=== PATIENT | male | born 1945 | race Caucasian/White ===

== ENCOUNTER 2018-06-26 02:39 | Inpatient (IN) | payer MEDICARE ==
[2018-06-26] VITALS (16 sets, daily range): BP systolic 104–147; BP diastolic 62–98
[~2018-06-26] VITALS: Ht 182.9 cm; Wt 115.7 kg
[~2018-06-26 02:39] MED LIST: AMLODIPINE BESY10 MG PO; ASPIR 8181 MG PO; BACTRIM DS TAB1 EACH PO; CARDIZEM CD120 MG PO; CIPRO250 M1 PO; DIOVAN; DIOVAN 80 MG TA80 M1 PO; HYDROCHLOROTHIA25 M1 PO; HYDROCHLOROTHIA25 M2 PO; LEVSIN0.125 MG PO; LOPRESSOR25 PO; NITROGLYCERIN0.4 MG SUBLING; NORVASC5 MG PO; PERCOCET 5-3251 EACH PO; PHENAZOPYRIDIN200 M2 PO; PROTONIX40 M1 PO; SORINE 80 MG TA80 M1 PO; TOPROL XL25 MG; TYLENOL325 MG PO; VALSARTAN-HCTZ1 EAC4 PO; XARELTO10 MG PO; XARELTO20 MG PO
[2018-06-26 03:05] LABS: ABSOLUTE LYMPHOCYTES 1.6 thou/uL (0.8-5.3); ABSOLUTE MONOCYTES 0.8 thou/uL (0.0-1.2); BASOPHILS 0.5 %; EOSINOPHILS 0.5 %; HEMATOCRIT 51.2 % (42.0-52.0); LYMPHOCYTES 18.7 %; MCH 31.9 pg (26.0-34.0); MCHC 33.2 g/dL (28.0-37.0); MCV 96.4 fL (80.0-100.0); MONOCYTES 9.2 %; MPV 9.5 fl. (7.2-11.1); NUCLEATED RBCS 0 /100WBC; PLATELET COUNT* 212 thou/uL (150-400); POLYS 71.1 %; RBC 5.31 mil/uL (4.50-6.00); RDW-CV 13.9 % (10.5-14.5); WBC 8.5 thou/uL (4.0-11.0)
[2018-06-26 03:14] LABS: APTT 24.9 Seconds (25.0-31.3); PROTIME 10.6 Seconds (9.20-11.50)
[2018-06-26 03:30] LABS: ANION GAP 13 mmol/L (7-16); BUN 75 mg/dL (7-18); CALCIUM 9.1 mg/dL (8.5-10.1); CHLORIDE 86 mmol/L (98-107); CO2 26 mmol/L (21-32); CREATININE 2.7 mg/dL (0.6-1.3); POTASSIUM 4.1 mmol/L (3.5-5.1); SODIUM 125 mmol/L (136-145)
[2018-06-26] MEDS ORDERED: SORINE 80 MG TA80 M1 (03:35)
[2018-06-26] MEDS ORDERED: HYDROCHLOROTHIA25 M2 (03:37)
[2018-06-26 03:42] LABS: ALBUMIN 3.8 g/dL (3.4-5.0); ALKALINE PHOSPHATASE 226 U/L (46-116); LIPASE 688 U/L (73-393); NT-PRO BRAIN NAT PEPTIDE 713 pg/mL (<300); SGOT 24 U/L (15-37); SGPT 36 U/L (30-65); TOTAL BILIRUBIN 0.9 mg/dL (<0.1-1.0); TOTAL PROTEIN 7.9 g/dL (6.4-8.2); TROPONIN-I LEVEL <0.06 ng/mL (<0.06)
[2018-06-26 03:51] LABS: GLUCOSE 1012 mg/dL (70-99)
[2018-06-26 04:42] LABS: BE -1.5 mmol/L (-2 to +3); HCO3 23.9 mmol/L (22.0-26.0); PCO2 42.6 mmHg (35.0-45.0); PO2 98.3 mmHg (75.0-100.0); pH 7.366 (7.340-7.450)
[2018-06-26 08:42] LABS: CHOLESTEROL 302 mg/dL (<200); HDL CHOLESTEROL 35 mg/dL (>40); TC:HDL 8.6 Ratio (Not establshd); TRIGLYCERIDE 1151 mg/dL (<150); VLDL 230 mg/dL (<40)
[2018-06-26 08:46] LABS: LDL CHOLESTEROL ND mg/dL (<100); SERUM ASSESSMENT Clear
[2018-06-26 10:35] LABS: ALBUMIN 3.5 g/dL (3.4-5.0); CALCIUM 9.4 mg/dL (8.5-10.1); CREATININE 2.6 mg/dL (0.6-1.3); MAGNESIUM 2.8 mg/dL (1.8-2.4); PHOSPHORUS* 4.4 mg/dL (2.5-4.9); POTASSIUM 3.4 mmol/L (3.5-5.1)
[2018-06-26 12:24] LABS: URINE BILIRUBIN NEGATIVE (Negative); URINE BLOOD 2+ (Negative); URINE CLARITY CLEAR; URINE COLOR YELLOW; URINE GLUCOSE-RANDOM 3+ (Negative); URINE KETONES NEGATIVE (Negative); URINE LEUKOCYTES-REFLEX NEGATIVE (Negative); URINE NITRITE-REFLEX NEGATIVE (Negative); URINE PROTEIN 2+ (Negative); URINE SPECIFIC GRAVITY 1.025 (1.005-1.030); URINE UROBILINOGEN 0.2 E.U./dl (0.2-1.0)
[2018-06-26 12:34] LABS: BACTERIA-REFLEX 1-9 Few /HPF (None Seen); COARSE GRANULAR CASTS 0-3 Few /LPF (None Seen); CRYSTALS None Seen /LPF (None Seen); HYALINE CASTS 0-3 Few /LPF (None Seen); MUCUS 0-3 Light strn/LPF (None Seen); SQUAMOUS 0-3 Few /LPF (0-3); URINE RBC 3-10 Few /HPF (0-2); URINE WBC-REFLEX 0-5 Rare /HPF (0-5)
--- NOTE | 2018-06-26 12:59 | EKG ---
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 : 1945 Requested By: Lisa Johnson Order Number: [id number] MD: Allen Prado Measurements Intervals [place] Rate: 88 P: [place]: QRS: 28 QRSD: 102 T: -63 QT: 344 QTc: 417 Interpretive Statements Atrial fibrillation Ventricular premature complex Abnormal R-wave progression, early transition Nonspecific repol abnormality, diffuse leads Baseline wander in lead(s) V3 Compared to ECG 06/24/2017 22:44:49 Ventricular premature complex(es) now present Electronically Signed On 06-26-2018 12:59:01 CDT by Allen Prado [email or web address] <ELECTRONICALLY SIGNED> By: Allen Prado MD, FACC 06/26/18 1259 4 Allen Prado MD, FACC /EPI
[2018-06-26 14:19] LABS: CALCIUM 8.8 mg/dL (8.5-10.1); CREATININE 2.5 mg/dL (0.6-1.3); POTASSIUM 3.4 mmol/L (3.5-5.1)
[2018-06-26 14:22] LABS: ALBUMIN 3.1 g/dL (3.4-5.0); MAGNESIUM 2.6 mg/dL (1.8-2.4); PHOSPHORUS* 4.4 mg/dL (2.5-4.9)
[2018-06-26 17:12] LABS: CALCIUM 8.7 mg/dL (8.5-10.1); CREATININE 2.5 mg/dL (0.6-1.3); POTASSIUM 3.1 mmol/L (3.5-5.1)
[2018-06-26 17:14] LABS: MAGNESIUM 2.6 mg/dL (1.8-2.4); PHOSPHORUS* 4.3 mg/dL (2.5-4.9)
[2018-06-27] VITALS (8 sets, daily range): BP systolic 100–141; BP diastolic 50–93
[2018-06-27 02:06] LABS: ESTIMATED AVERAGE GLUCOSE > 398 mg/dL (()); GLYCOHEMOGLOBIN (HGB A1C) > 15.5 % (4.8-5.6)
[2018-06-27 05:00] LABS: CALCIUM 8.5 mg/dL (8.5-10.1); CREATININE 2.4 mg/dL (0.6-1.3); MAGNESIUM 2.7 mg/dL (1.8-2.4); POTASSIUM 3.7 mmol/L (3.5-5.1)
--- NOTE | 2018-06-27 13:42 | 2DMMODE ---
[place] [address] 2 D/M-MODE ECHOCARDIOGRAM Name: ARMEN CRUZ Room: [address] IN [facility]#: [id number] Admission: 06/26/18 Attend Phys: Cuca Valentino, Discharge: Date of : 45 Date of Service: 06/27/18 1342 Report #: [id number] THIS REPORT FOR: //name// APPROVED REPORT Study performed: 06/27/2018 10:21:12 EXAM: Comprehensive 2D, Doppler, and color-flow Echocardiogram Patient Location: In-Patient Room #: [facility] Status: routine BSA: 2.36 HR: 79 bpm BP: 117/81 mmHg Rhythm: Atrial Fibrillation Other Information Study Quality: Good Indications Atrial Fibrillation Chest Pain 2D Dimensions IVSd: 15.38 (7-11mm) LVOT Diam: 22.38 (18-24mm) LVDd: 44.56 mm PWd: 10.50 (7-11mm) Ascending Ao: 38.61 (22-36mm) LVDs: 23.17 (25-40mm) Aortic Root: 31.93 mm Volumes Left Atrial Volume (Systole) LA ESV Index: 22.70 mL/m2 Aortic Valve AoV Peak Rene.: 1.93 m/s AO Peak Gr.: 14.85 mmHg LVOT Max P.50 mmHg AO Mean Gr.: 8.62 mmHg LVOT Mean P.94 mmHg LVOT Max V: 1.37 m/s AO V2 VTI: 26.42 cm LVOT Mean V: 0.90 m/s RODRIGUE (VTI): 3.08 cm2 LVOT V1 VTI: 20.71 cm Mitral Valve MV Decel. Time: 238.86 ms MV PHT: 69.27 [place] [address] 2 D/M-MODE ECHOCARDIOGRAM Name: ARMEN CRUZ Room: [address] IN [facility].#: [id number] Admission: 06/26/18 Attend Phys: Cuca Valentino, Discharge: Date of : 45 Date of Service: 06/27/18 1342 Report #: [id number] MVA (PHT): 3.18 cm2 TDI Medial E' Rene.: 0.13 m/s Lateral E' Rene.: 0.11 m/s Pulmonary Valve PV Peak Rene.: 0.93 m/s PV Peak Gr.: 3.48 mmHg Tricuspid Valve RAP Estimate: 5.00 mmHg TR Peak Gr.: 26.52 mmHg RVSP: 31.50 mmHg PA Pressure: 31.50 mmHg Left Ventricle The left ventricle is normal size. There is normal LV segmental wall motion. Left ventricular systolic function is normal. The left ventricular ejection fraction is within the normal range. LVEF is 60-65%. This study is not technically sufficient to allow evaluation of the LV diastolic function due to atrial fibrillation. Right Ventricle The right ventricle is normal size. The right ventricular systolic function is normal. Atria The left atrium size is normal. The right atrium size is normal. Aortic Valve Mild aortic valve sclerosis. No aortic regurgitation is present. There is no aortic valvular stenosis. Mitral Valve Mild mitral annular calcification. There is no mitral valve regurgitation noted. No evidence of mitral valve stenosis. Tricuspid Valve The tricuspid valve is normal in structure. Mild tricuspid regurgitation. Mild pulmonary hypertension. Pulmonic Valve The pulmonary valve is normal in structure. There is no pulmonic valvular regurgitation[place] [address] 2 D/M-MODE ECHOCARDIOGRAM Name: ARMEN CRUZ Room: [address] IN ..#: [id number] Admission: 06/26/18 Attend Phys: Cuca Valentino, Discharge: Date of : 45 Date of Service: 06/27/18 1342 Report #: [id number] The aortic root is normal in size. IVC is normal in size and collapses >50% with inspiration. Pericardium There is no pericardial effusion. <Conclusion> The left ventricle is normal size. Left ventricular systolic function is normal. The left ventricular ejection fraction is within the normal range. LVEF is 60-65%. This study is not technically sufficient to allow evaluation of the LV diastolic function due to atrial fibrillation. The right ventricle is normal size. The left atrium size is normal. Mild aortic valve sclerosis. No aortic regurgitation is present. There is no aortic valvular stenosis. Mild mitral annular calcification. There is no mitral valve regurgitation noted. No evidence of mitral valve stenosis. The tricuspid valve is normal in structure. Mild tricuspid regurgitation. Mild pulmonary hypertension. IVC is normal in size and collapses >50% with inspiration. There is no pericardial effusion. There is normal LV segmental wall motion. <ELECTRONICALLY SIGNED> By: Tristan Steele MD, FACC 06/27/18 134 134 41 Tristan Steele MD, FACC /INF
[2018-06-28] VITALS: BP 125/69
[2018-06-28 04:00] VITALS: BP 141/79
[2018-06-28 05:21] LABS: CALCIUM 8.1 mg/dL (8.5-10.1); CREATININE 2.3 mg/dL (0.6-1.3); MAGNESIUM 2.4 mg/dL (1.8-2.4); POTASSIUM 3.6 mmol/L (3.5-5.1)
[2018-06-28 08:00] VITALS: BP 136/82
[2018-06-28 13:26] VITALS: BP 127/73
[2018-06-28 20:00] VITALS: BP 119/78
[2018-06-29] VITALS: BP 112/76
[2018-06-29 04:00] VITALS: BP 118/65
[2018-06-29 04:57] LABS: HEMATOCRIT 38.1 % (42.0-52.0); HEMOGLOBIN 13.1 gm/dL (14.0-18.0); MCH 32.1 pg (26.0-34.0); MCHC 34.3 g/dL (28.0-37.0); MCV 93.4 fL (80.0-100.0); MPV 9.2 fl. (7.2-11.1); RBC 4.08 mil/uL (4.50-6.00); RDW-CV 13.4 % (10.5-14.5); WBC 7.4 thou/uL (4.0-11.0)
[2018-06-29 06:57] LABS: CALCIUM 8.3 mg/dL (8.5-10.1); CREATININE 2.4 mg/dL (0.6-1.3); MAGNESIUM 2.5 mg/dL (1.8-2.4); POTASSIUM 3.5 mmol/L (3.5-5.1)
[2018-06-29 08:00] VITALS: BP 123/83
[2018-06-29 12:00] VITALS: BP 125/76
[2018-06-29 13:43] VITALS: BP 125/76
[2018-06-29 16:42] VITALS: BP 117/67
--- NOTE | 2018-06-29 17:11 | CARDNUC ---
[place] [address] CARDIAC NUCLEAR IMAGING REPORT Name: ARMEN CRUZ Room: [address] IN [facility]#: [id number] Admission: 06/26/18 Attend Phys: Cuca Valentino, Discharge: Date of : 45 Date of Service: 06/29/18 1711 Report #: [id number] THIS REPORT FOR: //name// APPROVED REPORT Study performed: 06/28/2018 08:17:00 Indication: Atrial Fibrillation, Chest pain Patient Location: In-Patient Room #: 309 Stress Tech: Azra Harris Stress Nurse: Beverly Thurston RN NM Tech:PRASHANTH Cool Ht: 6 ft 0 in Wt: 255 lbs BSA: 2.36 m2 BMI: 34.58 Medical History Medical History: hyperlipidemia, ckd Medications: apixaban, aspirin 81, diltiazem, atorvastatin Allergies: nkda Cardiac Risk Factors: age, hypertension Exercise History: Sedentary Resting Data Rest SPECT myocardial perfusion imaging was performed in supine position 30 minutes following the intravenous injection of 36.6 mCi of Tc-99m Sestamibi. Time of rest injection: 934 Date: 06/29/2018 Time of rest imagin The images were gated to evaluate regional wall motion and calculate left ventricular ejection fraction. Administration Route: IV Pharmacologic Stress Pharmacologic stress test was performed by injecting Regadenoson 0.4 mg IV push over 10-15 seconds immediately followed by the intravenous injection of 39.9 mCi of Tc-99m Sestamibi. Time of stress injection: 15:55 Date: 06/28/2018 Administration Route: IV Administration Site: Right Arm Heart Rate at time of stress injection: 83 bpm. Gated Stress SPECT was performed 40 minutes after stress injection. The images were gated to evaluate regional wall [place] [address] CARDIAC NUCLEAR IMAGING REPORT Name: ARMEN CRUZ Room: [address]#: [id number] Admission: 06/26/18 Attend Phys: Cuca Valentino, Discharge: Date of : 45 Date of Service: 06/29/18 1711 Report #: [id number] left ventricular ejection fraction. Stress Test Details Stress Test: Pharmacologic stress testing performed using 0.4 mg of regadenoson per 5 mL given IV over 10 seconds. Reason for pharmacologic stress test: physical limitation. HR Max Heart Rate (APMHR): 148 bpm Resting HR: 87 bpm Target HR (85% APMHR): 125 bpm Max HR Achieved: 83 bpm % of APMHR: 56 Recovery HR: 88 bpm BP Resting BP: 116/66 mmHg Recovery BP: 111/57 mmHg ECG Resting ECG: Atrial Fibrillation Stress ECG: Atrial Fibrillation ST Change: None Arrhythmia: None Recovery ECG: Atrial Fibrillation Recovery ST Change: None Recovery Arrhythmia: None Clinical Reason for Termination: Completed protocol Exercise duration: 0 min sec Exercise capacity: 1` METs The patient tolerated Lexiscan infusion without significant symptoms. Nurse Comments pt unable to stand or walk without assistance Stress ECG Conclusion The baseline 12-lead EKG shows atrial fibrillation without significant ST segment abnormality. EKGs obtained during and post Lexiscan infusion show atrial fibrillation with no significant ST segment changes when compared baseline. There were no other stress-induced arrhythmias. Study Quality Study: Good Artifact: Mild [place] [address] CARDIAC NUCLEAR IMAGING REPORT Name: ARMEN CRUZ Room: [address] IN [facility]#: [id number] Admission: 06/26/18 Attend Phys: Cuca Valentino, Discharge: Date of : 45 Date of Service: 06/29/18 1711 Report #: [id number] Study Data At rest, the left ventricular ejection fraction was 87%.. Post stress, the left ventricular ejection was 92%.. TID = 1.01. Perfusion There is mild photopenia of the inferior wall on both stress and resting images that appears to diaphragmatic attenuation artifact. No other significant defects identified. Wall Motion Left particular systolic function appears vigorous. Nuclear Conclusion ECG Findings: negative for ischemia Clinical Findings: negative for ischemia Nuclear Findings: negative for ischemia Exercise Capacity: not assessed Left Ventricular Function: vigorous Risk Study: low Myocardial perfusion images show no defect to suggest ischemia or infarct. Left jugular systolic function is vigorous. This is a low risk study. <Conclusion> The baseline 12-lead EKG shows atrial fibrillation without significant ST segment abnormality. EKGs obtained during and post Lexiscan infusion show atrial fibrillation with no significant ST segment changes when compared baseline. There were no other stress-induced arrhythmias. <ELECTRONICALLY SIGNED> By: Allen Prado MD, FACC 06/29/181710 10 10 Allen Prado MD, FACC /INF
[2018-06-30] VITALS (7 sets, daily range): BP systolic 121–164; BP diastolic 69–82
[2018-06-30 04:37] LABS: HEMATOCRIT 38.1 % (42.0-52.0); HEMOGLOBIN 12.9 gm/dL (14.0-18.0); MCH 31.6 pg (26.0-34.0); MCHC 33.8 g/dL (28.0-37.0); MCV 93.5 fL (80.0-100.0); RBC 4.07 mil/uL (4.50-6.00); RDW-CV 13.3 % (10.5-14.5); WBC 6.8 thou/uL (4.0-11.0)
[2018-06-30 04:47] LABS: ALBUMIN 2.7 g/dL (3.4-5.0); CALCIUM 8.2 mg/dL (8.5-10.1); CREATININE 2.1 mg/dL (0.6-1.3); MAGNESIUM 2.5 mg/dL (1.8-2.4); POTASSIUM 3.7 mmol/L (3.5-5.1); TOTAL BILIRUBIN 0.4 mg/dL (<0.1-1.0); TOTAL PROTEIN 5.6 g/dL (6.4-8.2)
[2018-07-01 03:53] VITALS: BP 158/91
[2018-07-01 04:19] LABS: HEMATOCRIT 40.6 % (42.0-52.0); HEMOGLOBIN 13.8 gm/dL (14.0-18.0); MCH 31.7 pg (26.0-34.0); MCV 93.2 fL (80.0-100.0); RBC 4.36 mil/uL (4.50-6.00); RDW-CV 13.4 % (10.5-14.5); WBC 6.1 thou/uL (4.0-11.0)
[2018-07-01 04:52] LABS: ALBUMIN 2.8 g/dL (3.4-5.0); CALCIUM 8.6 mg/dL (8.5-10.1); MAGNESIUM 2.4 mg/dL (1.8-2.4); POTASSIUM 3.1 mmol/L (3.5-5.1); TOTAL BILIRUBIN 0.5 mg/dL (<0.1-1.0); TOTAL PROTEIN 6.8 g/dL (6.4-8.2)
--- NOTE | 2018-07-01 08:35 | CON ---
[address] [address] CONSULTATION Name: ARMEN CRUZ Room: [address] IN M.R.#: [id number] Admission: 06/26/18 Attend Phys: Cuca Valentino MD Discharge: Date of : 45 Report #: [id number] THIS REPORT FOR: //name// CC: Brandt Valentino DATE OF SERVICE: 06/26/2018 NEPHROLOGY CONSULTATION CONSULTING PHYSICIAN: Dr. Valentino. REASON FOR NEPHROLOGY CONSULTATION: Acute kidney injury on chronic kidney disease, stage 3. CHIEF COMPLAINT: Weakness. HISTORY OF PRESENT ILLNESS: This is a 72-year-old male, with past medical history of obesity, atrial fibrillation, hypertension, chronic kidney disease stage 3 with baseline creatinine of 1.9-1.2, came in because he was feeling extremely weak and was having polydipsia and polyuria. He does not have any history of diabetes in the past. He was found to have a blood glucose of more than 1000 in the Emergency Room and was started on treatment for hyperglycemic hyperosmolar state. He is currently on insulin drip, getting IV fluids. His initial creatinine was 2.7 when he came in. His creatinine when he followed up with us in the office in 2015 was 1.9-2, and he has not followed up with us since then. He has no history of any kidney stones. He does take hydrochlorothiazide. He is not taking any SONYA inhibitor or ARB or any NSAIDs. Denies any problems urinating. It looks like he has been nonoliguric since he has been here. Currently, he is on a facemask, completely cooperative feeling better from when he came in. The blood glucose is slowly coming down. ALLERGIES: No known drug allergies. REVIEW OF SYSTEMS: This is as mentioned in history of present illness, otherwise negative. PAST MEDICAL AND SURGICAL HISTORY: Includes hypertension. He does have history of chronic kidney disease, stage 3 with baseline creatinine of 1.9-2, which is likely because of hypertensive nephropathy, history of hyperlipidemia, double hernia repair, bilateral knee repair, atrial fibrillation with RVR. Cardioversion was done, back to normal sinus rhythm, bladder cancer, GERD, obesity. HOME MEDICATIONS: Which include sotalol, hydrochlorothiazide 25 mg once a day, aspirin, nitroglycerin, pantoprazole, diltiazem [place] [address] CONSULTATION Name: ARMEN CRUZ Room: [address]#: [id number] Admission: 06/26/18 Attend Phys: Cuca Valentino MD Discharge: Date of : 45 Report #: [id number] FAMILY HISTORY: No history of kidney disease in the family. SOCIAL HISTORY: He monthly drinks a beer and does not smoke currently, does not use any recreational drugs. Lives at home. PHYSICAL EXAMINATION: VITAL SIGNS: Blood pressure is 138/88 and pulse ox is 98% on 2 liters oxygen through facemask, respiratory rate 17, pulse rate is 78, temperature is 36.9. GENERAL: He is awake and alert and oriented x 3. HEAD, EYES, EARS, NOSE AND THROAT: Mucous membranes are dry. NECK: There is no JVD. LUNGS: Clear to auscultation bilaterally. No crackles or wheezing. CARDIOVASCULAR: S1, S2 normal. No murmurs or rubs. ABDOMEN: Soft, obese, nondistended, nontender. Bowel sounds are present. EXTREMITIES: There is no lower extremity edema, symmetrical looking. NEUROLOGICAL FUNCTION: Gross neurological function is intact. PSYCHIATRIC: Mood and affect seem to be normal. LABORATORY DATA: Hemoglobin 17.2, WBC is 8.5, platelet count is 212. Sodium was 125, but at that time, her blood glucose was 1000, potassium is 4.1, CO2 is 26 and creatinine of 2.7 and other labs were reviewed. IMAGING: Head CT and chest x-ray were reviewed. ASSESSMENT: 1. Acute kidney injury on chronic kidney disease, stage 3 in the presence of volume depletion and hyperglycemic hyperosmolar state. Baseline creatinine is 1.9-2. UA will be checked at this time. Creatinine is 2.7 at this time. He is looking dry and getting IV fluids. The patient was probably volume depleted and was also taking hydrochlorothiazide, which also contributed to acute kidney injury. 2. Diabetes mellitus, type 2, newly diagnosed. The patient presented with hyperglycemic hyperosmolar state. The patient is on IV fluids and insulin drip and primary team is managing that in the Intensive Care Unit. 3. History of atrial fibrillation. 4. History of bladder cancer. 5. Hyperlipidemia. 6. Hyponatremia in the presence of hyperglycemic state, should get better as hyperglycemia gets better. We will continue to monitor that. 7. Possible coronary artery disease. 8. Obesity. PLAN: 1. Continue IV hydration. We will give normal saline, but we will cut down the rate to 75 [place] [address] CONSULTATION Name: ARMEN CRUZ Room: [address] ADM IN M.R.#: [id number] Admission: 06/26/18 Attend Phys: Cuca Valentino MD Discharge: Date of : 45 Report #: [id number] 2. Management of hyperglycemic hyperosmolar state as per primary team. 3. Continue to also monitor the sodium level. Sodium corrected for blood glucose was around 130 when he came in. 4. If creatinine does not start coming down, we will go ahead and get a renal ultrasound done. Also, we will check a bladder scan and also UA. Thank you for this consultation. We will continue to follow along with you. Plan was discussed with the patient as well as the patient's nurse. <ELECTRONICALLY SIGNED> By: Inez Camarillo MD 07/01/18 0835 0925 0057Apalmira Camarillo MD /nt
[2018-07-01 12:14] VITALS: BP 114/77
[2018-07-01 16:00] VITALS: BP 105/62
[2018-07-01 19:18] VITALS: BP 108/62
[2018-07-02] VITALS: BP 130/73
[2018-07-02 04:00] VITALS: BP 141/83
[2018-07-02 04:26] LABS: CALCIUM 8.3 mg/dL (8.5-10.1); MAGNESIUM 2.2 mg/dL (1.8-2.4); POTASSIUM 3.7 mmol/L (3.5-5.1)
[2018-07-02 07:25] LABS: HEMATOCRIT 38.3 % (42.0-52.0); MCHC 33.9 g/dL (28.0-37.0); MCV 94.2 fL (80.0-100.0); MPV 9.1 fl. (7.2-11.1); RBC 4.06 mil/uL (4.50-6.00); RDW-CV 13.4 % (10.5-14.5); WBC 5.9 thou/uL (4.0-11.0)
[2018-07-02 07:40] VITALS: BP 141/89
[2018-07-02] MEDS ORDERED: ELIQUIS5 MG PO (10:23)
[2018-07-02] MEDS ORDERED: ATORVASTATIN CA20 MG PO (10:46)
[2018-07-02] MEDS ORDERED: HYDROCODON-ACE1 EAC7 PO (10:46)
[2018-07-02] MEDS ORDERED: GABAPENTIN 100100 MG PO (10:46)
[2018-07-02] MEDS ORDERED: MELATONIN5 M1 PO (10:49)
[2018-07-02] MEDS ORDERED: LANTUS100 UNIT/M SUBQ ×2 (10:49)
[2018-07-02] MEDS ORDERED: GLUCOTROL5 MG PO (10:49)
[2018-07-02] MEDS ORDERED: HUMALOG100 UNIT/1 SUBQ (11:05)
[2018-07-02 12:00] VITALS: BP 136/75
== END 2018-07-02 14:19 | DRG 682 ==
LOC: M.ERS 02:39 → M.ICU 04:36 → M.TBA-ER 04:36 → M.ICU 05:26 → M.3W 06-27 17:33
PROVIDERS: Family Medicine; Internal Medicine; Personal Emergency Response Attendant; ADMIT Internal Medicine
DX: N17.0 Acute kidney failure with tubular necrosis (principal); E11.00 Type 2 diabetes mellitus with hyperosmolarity without nonketotic hyperglycemic-hyperosmolar coma (NKHHC); I25.110 Atherosclerotic heart disease of native coronary artery with unstable angina pectoris; E87.1 Hypo-osmolality and hyponatremia; E11.65 Type 2 diabetes mellitus with hyperglycemia; E87.6 Hypokalemia; R26.9 Unspecified abnormalities of gait and mobility; I12.9 Hypertensive chronic kidney disease with stage 1 through stage 4 chronic kidney disease, or unspecified chronic kidney disease; C67.9 Malignant neoplasm of bladder, unspecified; N18.3 Chronic kidney disease, stage 3 (moderate); B07.9 Viral wart, unspecified; E66.9 Obesity, unspecified; E83.41 Hypermagnesemia; E11.22 Type 2 diabetes mellitus with diabetic chronic kidney disease; E78.5 Hyperlipidemia, unspecified; K21.9 Gastro-esophageal reflux disease without esophagitis; E78.00 Pure hypercholesterolemia, unspecified; I48.2 Chronic atrial fibrillation; Z79.82 Long term (current) use of aspirin; Z79.899 Other long term (current) drug therapy; Z79.4 Long term (current) use of insulin; Z79.84 Long term (current) use of oral hypoglycemic drugs; Z87.891 Personal history of nicotine dependence; Z68.34 Body mass index [BMI] 34.0-34.9, adult

== ENCOUNTER 2020-07-17 09:09 | Emergency (ER) | payer MEDICARE ==
[~2020-07-17] VITALS: Ht 182.9 cm; Wt 122.5 kg
[~2020-07-17 09:09] MED LIST changes: +ATORVASTATIN CA20 MG PO; +ELIQUIS5 MG PO; +GABAPENTIN 100100 MG PO; +GLUCOTROL5 MG PO; +HUMALOG100 UNIT/1 SUBQ; +HYDROCHLOROTHIA25 M2; +HYDROCODON-ACE1 EAC7 PO; +LANTUS100 UNIT/M SUBQ; +MELATONIN5 M1 PO; +SORINE 80 MG TA80 M1
[2020-07-17 10:06] LABS: INFLUENZA A ANTIGEN Negative (Negative); INFLUENZA B ANTIGEN Negative (Negative)
[2020-07-17 10:30] VITALS: BP 137/68
== END 2020-07-17 10:30 | disposition home or self-care (01) ==
LOC: M.ERS 09:09
PROVIDERS: Emergency Medicine Emergency Medical Services
DX: U07.1 COVID-19 (principal); I10 Essential (primary) hypertension; E78.00 Pure hypercholesterolemia, unspecified; I48.91 Unspecified atrial fibrillation; E11.9 Type 2 diabetes mellitus without complications; K21.9 Gastro-esophageal reflux disease without esophagitis; I12.9 Hypertensive chronic kidney disease with stage 1 through stage 4 chronic kidney disease, or unspecified chronic kidney disease; E11.22 Type 2 diabetes mellitus with diabetic chronic kidney disease; N18.30 Chronic kidney disease, stage 3 unspecified; E66.9 Obesity, unspecified; Z79.899 Other long term (current) drug therapy

== ENCOUNTER 2020-07-18 23:48 | Emergency (ER) | payer MEDICARE ==
[~2020-07-18] VITALS: Ht 182.9 cm; Wt 117.9 kg
[2020-07-19] MEDS ORDERED: PREDNISONE 20 M20 M1 PO (00:29)
[2020-07-19] MEDS ORDERED: AZITHROMYCIN 2250 MG PO (00:29)
[2020-07-19 00:33] LABS: ABSOLUTE LYMPHOCYTES 1.5 thou/uL (0.8-5.3); ABSOLUTE MONOCYTES 0.5 thou/uL (0.0-1.2); ABSOLUTE NEUTROPHILS 3.8 thou/uL (1.6-8.1); BASOPHILS 0.3 %; EOSINOPHILS 0.5 %; HEMATOCRIT 42.2 % (42.0-52.0); HEMOGLOBIN 14.5 gm/dL (14.0-18.0); LYMPHOCYTES 25.2 %; MCH 30.5 pg (26.0-34.0); MCHC 34.4 g/dL (28.0-37.0); MCV 88.4 fL (80.0-100.0); MONOCYTES 8.3 %; NUCLEATED RBCS 0 /100WBC; PLATELET COUNT* 156 thou/uL (150-400); POLYS 65.7 %; RBC 4.77 mil/uL (4.50-6.00); RDW-CV 14.6 % (10.5-14.5); WBC 5.8 thou/uL (4.0-11.0)
[2020-07-19 00:36] LABS: CREATININE 2.7 mg/dL (0.6-1.3); POTASSIUM 3.2 mmol/L (3.5-5.1)
[2020-07-19 00:37] LABS: APTT 28.3 Seconds (25.0-31.3); INR 1.2
[2020-07-19 00:52] LABS: ALBUMIN 3.3 g/dL (3.4-5.0); CK-MB MASS 2.5 ng/mL (<0.5-3.6); TOTAL BILIRUBIN 0.6 mg/dL (<0.1-1.0); TOTAL PROTEIN 7.8 g/dL (6.4-8.2)
[2020-07-19 00:54] LABS: MAGNESIUM 0.9 mg/dL (1.8-2.4)
[2020-07-19 01:45] VITALS: BP 130/60
--- NOTE | 2020-07-19 12:14 | EKG ---
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: : 1945 Requested By: Delfino Biswas Order Number: [id number] MD: Emery Burris Measurements Intervals [place] Rate: 88 P: [place]: QRS: 28 QRSD: 103 T: 20 QT: 379 QTc: 459 Interpretive Statements Atrial fibrillation Abnormal R-wave progression, early transition Borderline repolarization abnormality Compared to ECG 06/26/2018 02:45:59 Ventricular premature complex(es) no longer present Electronically Signed On 07-19-2020 12:14:52 CDT by Emery Burris [email or web address] <ELECTRONICALLY SIGNED> By: Dain Burris MD, FAC 07/19/20 1214 Dain Burris MD, [facility] /EPI
== END 2020-07-19 01:45 | disposition home or self-care (01) ==
LOC: M.ERS 23:48
PROVIDERS: Family Medicine
DX: U07.1 COVID-19 (principal); R07.9 Chest pain, unspecified; R06.00 Dyspnea, unspecified; E83.42 Hypomagnesemia; E78.00 Pure hypercholesterolemia, unspecified; I48.91 Unspecified atrial fibrillation; K21.9 Gastro-esophageal reflux disease without esophagitis; E66.9 Obesity, unspecified; I12.9 Hypertensive chronic kidney disease with stage 1 through stage 4 chronic kidney disease, or unspecified chronic kidney disease; E11.22 Type 2 diabetes mellitus with diabetic chronic kidney disease; N18.30 Chronic kidney disease, stage 3 unspecified; Z79.4 Long term (current) use of insulin; Z79.82 Long term (current) use of aspirin

== ENCOUNTER 2020-07-23 10:43 | Inpatient (IN) | payer MEDICARE ==
[~2020-07-23] VITALS: Ht 182.9 cm; Wt 123.8 kg
[~2020-07-23 10:43] MED LIST changes: +AZITHROMYCIN 2250 MG PO; +PREDNISONE 20 M20 M1 PO
[2020-07-23 10:53] VITALS: BP 155/96
[2020-07-23 11:58] LABS: ABSOLUTE LYMPHOCYTES 0.8 thou/uL (0.8-5.3); ABSOLUTE MONOCYTES 0.4 thou/uL (0.0-1.2); ABSOLUTE NEUTROPHILS 5.5 thou/uL (1.6-8.1); BASOPHILS 0.3 %; EOSINOPHILS 0.1 %; HEMATOCRIT 43.5 % (42.0-52.0); LYMPHOCYTES 12.4 %; MCH 30.7 pg (26.0-34.0); MCHC 34.5 g/dL (28.0-37.0); MCV 89.1 fL (80.0-100.0); MPV 8.3 fl. (7.2-11.1); NUCLEATED RBCS 0 /100WBC; PLATELET COUNT* 169 thou/uL (150-400); POLYS 81.2 %; RBC 4.88 mil/uL (4.50-6.00); RDW-CV 14.3 % (10.5-14.5); WBC 6.8 thou/uL (4.0-11.0)
[2020-07-23 12:09] LABS: CALCIUM 8.4 mg/dL (8.5-10.1); CREATININE 2.2 mg/dL (0.6-1.3); POTASSIUM 3.2 mmol/L (3.5-5.1)
[2020-07-23 12:10] LABS: APTT 26.2 Seconds (25.0-31.3); INR 1.1; PROTIME 11.4 Seconds (9.20-11.50)
[2020-07-23 12:13] LABS: ALBUMIN 3.3 g/dL (3.4-5.0); TOTAL BILIRUBIN 0.8 mg/dL (<0.1-1.0); TOTAL PROTEIN 7.9 g/dL (6.4-8.2)
[2020-07-23 15:50] VITALS: BP 155/90
[2020-07-23 16:10] VITALS: BP 161/102
--- NOTE | 2020-07-23 17:09 | EKG ---
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: EJNARO : 1945 Requested By: Delfino Biswas Order Number: [id number] MD: Allen Prado Measurements Intervals [place] Rate: 89 P: [place]: QRS: 44 QRSD: 113 T: -42 QT: 363 QTc: 442 Interpretive Statements Atrial fibrillation Incomplete right bundle branch block Nonspecific repol abnormality, lateral leads Compared to ECG 07/18/2020 23:58:02 Incomplete right bundle-branch block now present Electronically Signed On 07-23-2020 17:09:07 CDT by Allen Prado [email or web address] <ELECTRONICALLY SIGNED> By: Allen Prado MD, FACC 07/23/20 1709 1129 1129 Allen Prado MD, FACC /EPI
[2020-07-23 20:00] VITALS: BP 175/103
[2020-07-23 23:57] VITALS: BP 153/90
[2020-07-24 04:00] VITALS: BP 151/90
[2020-07-24 05:13] LABS: ABSOLUTE LYMPHOCYTES 0.5 thou/uL (0.8-5.3); ABSOLUTE MONOCYTES 0.3 thou/uL (0.0-1.2); ABSOLUTE NEUTROPHILS 4.3 thou/uL (1.6-8.1); BASOPHILS 0.1 %; HEMATOCRIT 40.1 % (42.0-52.0); HEMOGLOBIN 13.6 gm/dL (14.0-18.0); LYMPHOCYTES 9.2 %; MCH 30.1 pg (26.0-34.0); MCHC 33.9 g/dL (28.0-37.0); MCV 88.9 fL (80.0-100.0); MONOCYTES 5.3 %; MPV 8.3 fl. (7.2-11.1); NUCLEATED RBCS 0 /100WBC; PLATELET COUNT* 161 thou/uL (150-400); POLYS 85.4 %; RBC 4.51 mil/uL (4.50-6.00); RDW-CV 14.6 % (10.5-14.5); WBC 5.1 thou/uL (4.0-11.0)
[2020-07-24 05:46] LABS: CALCIUM 7.9 mg/dL (8.5-10.1); CREATININE 2.4 mg/dL (0.6-1.3); MAGNESIUM 1.9 mg/dL (1.8-2.4); POTASSIUM 3.6 mmol/L (3.5-5.1)
[2020-07-24 08:30] VITALS: BP 152/101
[2020-07-24 12:00] VITALS: BP 171/98
--- NOTE | 2020-07-24 15:02 | CON ---
[address] [address] CONSULTATION Name: ARMEN CRUZ Room: [address] ADM IN M.R.#: [id number] Admission: 07/23/20 Attend Phys: Hayes Leblanc MD Discharge: Date of : 45 Report #: [id number] THIS REPORT FOR: //name// cc: Julia Saravia MD, Lin W. MD ~ DATE OF SERVICE: 07/23/2020 CONSULT REQUESTED BY: Dr. Leblanc. INDICATION FOR CONSULTATION: COVID-19. HISTORY OF PRESENT ILLNESS: A 74-year-old gentleman with past medical history includes a history of chronic renal failure, baseline creatinine 2.0. The patient has also had atrial fibrillation and he is on long-term anticoagulation. The patient is now admitted with increase in shortness of breath, weakness, and aches and pains. He has also had a cough. There has not been much sputum. He did receive Z-WELLINGTON as well as oral corticosteroids as an outpatient. He did not feel better and therefore, he eventually was admitted here. The patient upon arrival was oxygenating around 91% on room air. He currently is on 2 liters oxygen, his saturation is 95. He does report having had nausea, vomiting and diarrhea. He has been having headaches. He has had body aches. He has had abdominal pain as well. He does say that he has had decrease in appetite. REVIEW OF SYSTEMS: For 12 points is negative except as mentioned above. He does feel weak. PAST MEDICAL HISTORY: Chronic renal failure, baseline creatinine 2.0; atrial fibrillation, on anticoagulation; long-term hypertension, hyperlipidemia, hernia repair, knee surgery bilaterally, melanoma, bladder cancer, diabetes, GERD, and obesity. SOCIAL HISTORY: Lifetime nonsmoker. He does use alcohol. I do not see documentation of any excessive alcohol use though. No known history of illegal drug use. ALLERGIES: No known drug allergies. CURRENT MEDICATIONS: List in [facility] reviewed. HOME MEDICATIONS: List in [facility] reviewed. FAMILY HISTORY: There is no pertinent family history. PHYSICAL EXAMINATION: GENERAL: Alert[place] [address] CONSULTATION Name: ARMEN CRUZ Room: [address] IN [facility]#: [id number] Admission: 07/23/20 Attend Phys: Hayes Leblanc MD Discharge: Date of : 45 Report #: [id number] VITAL SIGNS: He has a pulse of 101 with a blood pressure of 155/90, he is saturating 95% on 2 liters nasal cannula, respiratory rate is 13-14. He is afebrile with a temperature of 36.2. Body mass index is elevated at 36.6. HEENT: Head is normocephalic and atraumatic. NECK: Does not show raised JVP, asymmetry, mass or lymph nodes. CHEST: Symmetrical expansion on inspection and palpation. On auscultation, breath sounds are bilaterally equal, but decreased. I do not hear any added sounds. HEART: Irregular. No murmur. ABDOMEN: Soft and nontender. EXTREMITIES: Lower extremities show trace edema, no calf tenderness. SKIN: Dry and intact. NEUROLOGICAL: Moves all extremities bilaterally equally and spontaneously with no focal deficit identified. Labs and radiological imaging in [facility] is reviewed ASSESSMENT AND PLAN: 1. Acute respiratory insufficiency. This is secondary to COVID-19. 2. COVID-19. I agree with remdesivir. Recommend watching LFTs closely while he is on remdesivir. He does have mild elevation in LFTs initially; however, I still feel that the potential benefit of giving him remdesivir outweighs the risks. At this time, he received 125 mg of Solu-Medrol in the Emergency Room. He does have hyperglycemia. He is now ordered dexamethasone 4 mg IV b.i.d. I did not increase his steroid dose for now. If his respiratory status worsen, then I would increase and in that case, recommend adjusting insulin accordingly. 3. Pulmonary infiltrates. He received Z-WELLINGTON recently. At this time, he has already received 1 dose of azithromycin and ceftriaxone in the ER. We will continue with ceftriaxone. 4. Chronic renal failure. His creatinine at baseline is 2.0. His creatinine now is 2.2. He has already received more than a liter of saline. I discontinued more fluids. Watch and follow creatinine. 5. Critical low magnesium levels/severe hypomagnesemia/hypokalemia. Replacement is ordered. 6. Atrial fibrillation noted to be on anticoagulation. 7. Gastroesophageal reflux disease, Protonix. 8. Clostridium difficile prophylaxis, Florastor. Thanks for this consultation. <ELECTRONICALLY SIGNED> By: Ramiro Winslow MD 07/24/20 1502 1757 Naun Winslow MD /nt
[2020-07-24 16:00] VITALS: BP 141/91
[2020-07-24 17:01] LABS: CALCIUM 7.9 mg/dL (8.5-10.1); CREATININE 2.3 mg/dL (0.6-1.3); POTASSIUM 3.5 mmol/L (3.5-5.1)
[2020-07-24 17:05] LABS: ALBUMIN 2.9 g/dL (3.4-5.0); DIRECT BILIRUBIN 0.1 mg/dL (<0.1-0.3); TOTAL BILIRUBIN 0.5 mg/dL (<0.1-1.0); TOTAL PROTEIN 7.4 g/dL (6.4-8.2)
[2020-07-24 20:00] VITALS: BP 159/98
[2020-07-25] VITALS: BP 163/85
[2020-07-25 08:00] VITALS: BP 135/70
[2020-07-25 10:11] LABS: HEMATOCRIT 42.6 % (42.0-52.0); HEMOGLOBIN 14.1 gm/dL (14.0-18.0); MCH 29.9 pg (26.0-34.0); MCHC 33.1 g/dL (28.0-37.0); MCV 90.3 fL (80.0-100.0); MPV 8.5 fl. (7.2-11.1); NUCLEATED RBCS 0 /100WBC; PLATELET COUNT* 208 thou/uL (150-400); RBC 4.71 mil/uL (4.50-6.00); WBC 11.3 thou/uL (4.0-11.0)
[2020-07-25 10:43] LABS: ALBUMIN 2.7 g/dL (3.4-5.0); CREATININE 2.1 mg/dL (0.6-1.3); MAGNESIUM 2.2 mg/dL (1.8-2.4); POTASSIUM 3.8 mmol/L (3.5-5.1); TOTAL BILIRUBIN 0.5 mg/dL (<0.1-1.0); TOTAL PROTEIN 7.2 g/dL (6.4-8.2)
[2020-07-25 11:16] LABS: ABSOLUTE LYMPHOCYTES 0.8 thou/uL (0.8-5.3); ABSOLUTE MONOCYTES 0.5 thou/uL (0.0-1.2); ABSOLUTE NEUTROPHILS 10.1 thou/uL (1.6-8.1); ANISOCYTOSIS 1+; PLATELET ESTIMATE ADEQUATE; POIKILOCYTOSIS 1+
[2020-07-25 16:09] VITALS: BP 121/85
[2020-07-25 20:00] VITALS: BP 154/80
[2020-07-26 00:28] VITALS: BP 149/95
[2020-07-26 08:00] VITALS: BP 169/100
[2020-07-26] MEDS ORDERED: DEXAMETHASONE1 MG PO (11:40)
[2020-07-26] MEDS ORDERED: DOXYCYCLINE 10100 MG PO (11:40)
[2020-07-26 13:06] VITALS: BP 169/100
== END 2020-07-26 13:35 | disposition home or self-care (01) | DRG 177 ==
LOC: M.ERS 10:43 → M.TBA-ER 12:35 → M.2W 12:35
PROVIDERS: Family Medicine; Internal Medicine Critical Care Medicine; ADMIT Internal Medicine; ATTEND Internal Medicine
PROC: XW033E5 Introduction of Remdesivir Anti-infective into Peripheral Vein, Percutaneous Approach, New Technology Group 5 (ICD-10-PCS; principal; 2020-07-23)
DX: U07.1 COVID-19 (principal); J12.89 Other viral pneumonia; R65.10 Systemic inflammatory response syndrome (SIRS) of non-infectious origin without acute organ dysfunction; N17.9 Acute kidney failure, unspecified; I48.20 Chronic atrial fibrillation, unspecified; E11.22 Type 2 diabetes mellitus with diabetic chronic kidney disease; E66.9 Obesity, unspecified; G47.33 Obstructive sleep apnea (adult) (pediatric); K21.9 Gastro-esophageal reflux disease without esophagitis; N18.30 Chronic kidney disease, stage 3 unspecified; E86.0 Dehydration; E78.5 Hyperlipidemia, unspecified; E87.6 Hypokalemia; R06.89 Other abnormalities of breathing; E83.42 Hypomagnesemia; I12.9 Hypertensive chronic kidney disease with stage 1 through stage 4 chronic kidney disease, or unspecified chronic kidney disease; E78.00 Pure hypercholesterolemia, unspecified; Z68.37 Body mass index [BMI] 37.0-37.9, adult; Z85.51 Personal history of malignant neoplasm of bladder; Z85.820 Personal history of malignant melanoma of skin; Z79.84 Long term (current) use of oral hypoglycemic drugs; Z79.899 Other long term (current) drug therapy; Z79.01 Long term (current) use of anticoagulants; Z79.82 Long term (current) use of aspirin

== ENCOUNTER 2020-08-01 09:28 | Emergency (ER) | payer MEDICARE ==
[~2020-08-01] VITALS: Ht 182.9 cm; Wt 117.9 kg
[~2020-08-01 09:28] MED LIST changes: +DEXAMETHASONE1 MG PO; +DOXYCYCLINE 10100 MG PO
[2020-08-01 10:18] LABS: HEMATOCRIT 40.1 % (42.0-52.0); HEMOGLOBIN 13.4 gm/dL (14.0-18.0); MCH 30.1 pg (26.0-34.0); MCHC 33.4 g/dL (28.0-37.0); MPV 7.4 fl. (7.2-11.1); NUCLEATED RBCS 0 /100WBC; PLATELET COUNT* 214 thou/uL (150-400); RBC 4.45 mil/uL (4.50-6.00); RDW-CV 14.5 % (10.5-14.5); WBC 11.8 thou/uL (4.0-11.0)
[2020-08-01 10:28] LABS: CALCIUM 8.5 mg/dL (8.5-10.1); CREATININE 2.4 mg/dL (0.6-1.3); POTASSIUM 3.6 mmol/L (3.5-5.1)
[2020-08-01 10:31] LABS: APTT 23.4 Seconds (25.0-31.3); INR 1.1; PROTIME 11.5 Seconds (9.20-11.50)
[2020-08-01 10:42] LABS: ALBUMIN 2.4 g/dL (3.4-5.0); CK-MB MASS 4.9 ng/mL (<0.5-3.6); MAGNESIUM 1.6 mg/dL (1.8-2.4); TOTAL BILIRUBIN 0.5 mg/dL (<0.1-1.0); TOTAL PROTEIN 6.2 g/dL (6.4-8.2)
[2020-08-01] MEDS ORDERED: PREDNISONE 20 M20 M1 PO (10:58)
[2020-08-01] MEDS ORDERED: VENTOLIN HFA 1818 GM INH (10:58)
[2020-08-01 11:27] VITALS: BP 139/88
[2020-08-01 11:36] LABS: ABSOLUTE LYMPHOCYTES 0.9 thou/uL (0.8-5.3); ABSOLUTE MONOCYTES 0.4 thou/uL (0.0-1.2); ABSOLUTE NEUTROPHILS 10.5 thou/uL (1.6-8.1)
[2020-08-01 11:37] LABS: PLATELET ESTIMATE ADEQUATE
--- NOTE | 2020-08-02 14:04 | EKG ---
[place] [address] ELECTROCARDIOGRAM REPORT Name: ARMEN CRUZ Room: [facility]#: [id number] Admission: 08/01/20 Attend Phys: Discharge: 08/01/20 Date of : 45 Date of Service: 08/01/20 0933 Report #: [id number] THIS REPORT FOR: //name// [facility] ED Test Date: 2020-08-01 Test Time: 09:33:48 Pat Name: ARMEN CRUZ Department: Room: Gender: Med Peds: [place] : 1945 Requested By: Delfino Biswas Order Number: [id number] MD: Allen Prado Measurements Intervals [place] Rate: 72 P: [place]: QRS: 59 QRSD: 110 T: 253 QT: 301 QTc: 330 Interpretive Statements Atrial fibrillation Nonspecific repol abnormality, diffuse leads, consider ischemia Baseline wander in lead(s) V5 Compared to ECG 07/23/2020 11:29:03 Incomplete right bundle-branch block no longer present Electronically Signed On 08-02-2020 14:04:29 [employer]ERCING [employer] by Allen Prado [email or web address] <ELECTRONICALLY SIGNED> By: Allen Prado MD, FACC 08/02/20 1404 Allen Prado MD, [facility] /EPI
== END 2020-08-01 11:28 | disposition home or self-care (01) ==
LOC: M.ERS 09:28
PROVIDERS: Family Medicine
DX: U07.1 COVID-19 (principal); E78.00 Pure hypercholesterolemia, unspecified; I48.91 Unspecified atrial fibrillation; K21.9 Gastro-esophageal reflux disease without esophagitis; E66.9 Obesity, unspecified; I13.10 Hypertensive heart and chronic kidney disease without heart failure, with stage 1 through stage 4 chronic kidney disease, or unspecified chronic kidney disease; E11.22 Type 2 diabetes mellitus with diabetic chronic kidney disease; N18.30 Chronic kidney disease, stage 3 unspecified; Z68.35 Body mass index [BMI] 35.0-35.9, adult; Z79.4 Long term (current) use of insulin